=== PATIENT | female | born 1975 | race Two or more races ===

== ENCOUNTER 2016-11-07 06:13 | Inpatient (IN) | payer SELFPAY ==
[~2016-11-07] VITALS: Ht 154.9 cm; Wt 67.1 kg
[2016-11-07 08:30] VITALS: BP 120/63
[2016-11-07] MEDS ORDERED: LIDOCAINE 1% PF 30 ML VIAL. INJ PRN (09:15)
[2016-11-07] MEDS ORDERED: fentaNYL PF VIAL 100 MCG/2 ML VIAL IV PRN (09:15)
[2016-11-07] MEDS ORDERED: 0.9 % SODIUM CHLORIDE 10 ML DISP.SYRIN. IV PRN ×2 (09:15→16:00)
[2016-11-07] MEDS ORDERED: OXYTOCIN 30 UNIT/500 ML PREMIX 500 ML IV PRN ×4 (09:15→16:00)
[2016-11-07] MEDS ORDERED: CITRIC ACID/SODIUM CITRATE 30 ML SOLUTION. PO PRN (09:15)
[2016-11-07] MEDS ORDERED: BUTORPHANOL 2 MG/ML VIAL. IV PRN ×2 (09:15)
[2016-11-07] MEDS ORDERED: TERBUTALINE 1 MG/ML VIAL. SQ PRN (09:15)
[2016-11-07] MEDS ORDERED: MAG HYDROX/ALUMINUM HYD/SIMETH 30 ML ORAL.SUSP PO PRN ×2 (09:15→16:00)
[2016-11-07 09:37] LABS: HEMATOCRIT 36.2 % (36.0-47.0); HEMOGLOBIN 12.4 g/dL (12.0-15.5); RED BLOOD COUNT 3.59 x10^6/uL (3.50-5.40); RED CELL DISTRIBUTION WIDTH 13.3 % (11.5-14.5); WHITE BLOOD COUNT 5.7 x10^3/uL (4.0-11.0)
[2016-11-07] MEDS ORDERED: LIDOCAINE 2% PF Vial for OR 5 ML VIAL. ONE (10:20)
[2016-11-07] MEDS: IV RINGERS,LACTATED 1000ML 1,000 ML IV SCH ×2 (10:31→11:20)
[2016-11-07] MEDS ORDERED: L&D EPIDURAL CASSETTE 100 ML PUMP.RESVR. EP ONE (11:02)
[2016-11-07] MEDS ORDERED: L&D EPIDURAL CASSETTE 100 ML EP ONE (11:02)
[2016-11-07 12:55] LABS: BILIRUBIN,URINE NEGATIVE (NEG); GLUCOSE,URINE NEGATIVE (NEG); NITRITE,URINE NEGATIVE (NEG); PH,URINE 6.5; PROTEIN,URINE NEGATIVE (NEG-TRACE); UROBILINOGEN,URINE 0.2 mg/dL (0.2 mg/dL)
[2016-11-07 13:29] LABS: BACTERIA,URINE 0 /HPF (0-FEW); RBC,URINE OCC /HPF (0-2); SQUAMOUS EPITHELIAL CELL,UR FEW /LPF; WBC,URINE 0 /HPF (0-4)
[2016-11-07] MEDS ORDERED: BENZOCAINE 20% TOPICAL AEROSOL SPRAY 57GM CAN. TP PRN (16:00)
[2016-11-07] MEDS ORDERED: SIMETHICONE 80 MG TAB.CHEW PO PRN (16:00)
[2016-11-07] MEDS ORDERED: ZOLPIDEM 5 MG TABLET. PO PRN (16:00)
[2016-11-07] MEDS ORDERED: PHENYLEPH/MINERAL OIL/PETROLAT RECTAL OINTMENT 28GM TUBE. RC PRN (16:00)
[2016-11-07] MEDS ORDERED: ACETAMINOPHEN 325 MG TABLET. PO PRN (16:00)
[2016-11-07] MEDS ORDERED: diphenhydrAMINE HCL 25 MG CAPSULE PO PRN (16:00)
[2016-11-07] MEDS ORDERED: HYDROcodone/APAP 5/325MG 1 TAB TABLET PO PRN (16:00)
[2016-11-07] MEDS ORDERED: MAGNESIUM HYDROXIDE 2,400 MG/30 ML ORAL.SUSP. PO PRN (16:00)
[2016-11-07] MEDS ORDERED: HYDROCORTISONE 1% TOPICAL OINTMENT 30GM TUBE. TP PRN (16:00)
--- NOTE | 2016-11-07 16:01 | PDOC1 ---
OB - History Hx of Present Care: Good Care Ultrasounds: Normal mid trimester US Obstetrical Complications: None Medical Complications: None Past Family/Social History * Past Medical, Surgical, Family and Obstetric Histories reviewed from chart. Blood Type: A+ Rubella: Immune RPR/VDRL: Negative GBS Status: Negative HBsAG: Negative OB - Chief Complaint & HPI Date of Admission: Date of Admission: Nov 07, 2016 at 06:13 Chief Complaint/History : 3 Para: 2 EDC: Nov 11, 2016 Reason for admission: induction of labor Indication for induction: other Admission Nurse Assessment Rev: Yes Problems: OB - Admission Exam Physical Exam Vitals: VS - Last 72 Hours, by Label Date Time Temp Pulse Resp B/P (MAP) Pulse Ox O2 Delivery O2 Flow Rate FiO2 11/07/16 08:30 99.1 61 20 120/63 (82) 99.1 HEENT: Normal, Nasal Mucosa Normal, Oropharynx Normal, Moist Membranes, Fontanelles Normal Heart: Regular Rate Lungs: Clear, Equal Abdomen: Gravid Extremities: Normal Pulses, No tenderness or swelling Reflexes: Normal Cervical Dilatation: 3cm Effacement: 50% Station: -2 Membranes: Intact Amniotic Fluid: Clear Heart Rate: Normal Accelerations: Accelerations Present Contractions on Admission: >10 Minutes Apart Intensity: Mild Assessment/Plan Assessment/Plan TIUP -[facility] ACSVD Problems: NEO CARRINGTON MD Nov 07, 2016 16:01
--- NOTE | 2016-11-07 16:04 | PDOC ---
VAGINAL DELIVERY DATE DATE: 11/07/16 TIME: 16:02 : 3 Para: 2 EDC: Nov 11, 2016 VAGINAL DELIVERY: VTX VACCUM ASSISTED: No PLACENTA: Spontaneous 10/26/ SEX: Male WEIGHT 8/4 Nuchal Cord: No Amniotic Fluid: Clear PAIN: Epidural EPISIOTOMY: Yes EXTENSION: No EBL 400cc COMPLICATIONS none CONDITION stable Signs of Intrauterine Infectio: None Shoulder Dystocia: No DIAGNOSIS delivered Problems: NEO CARRINGTON MD Nov 07, 2016 16:04
[2016-11-07] MEDS ORDERED: FERROUS SULFATE 325 MG TABLET. PO SCH (17:00)
[2016-11-07 20:00] VITALS: BP 109/50
[2016-11-07 21:00] VITALS: BP 91/50
[2016-11-07] MEDS: IBUPROFEN 800 MG TABLET. PO SCH (21:51)
[2016-11-08 04:30] VITALS: BP 109/56
[2016-11-08] MEDS: IBUPROFEN 800 MG TABLET. PO SCH (04:39)
[2016-11-08 06:19] LABS: RPR REFLEX Non Reactive (Non Reactive)
[2016-11-08 11:27] VITALS: BP 104/48
--- NOTE | 2016-11-08 13:08 | PDOC ---
OB Progress Note Date of Service 11/08/16 Time of Evaluation 1305 Notes Pt. feeling well. Pain controlled. Breast feeding. Lochia minimal. Lab Laboratory Tests Test 11/07/16 06:45 11/07/16 08:50 11/08/16 04:20 Urine Collection Type Unknown Urine Color Yellow Urine Clarity Clear Urine pH 6.5 Urine Specific [place] 1.010 Urine Protein Negative mg/dL (NEG-TRACE) Urine Glucose (UA) Negative mg/dL (NEG) Urine Ketones (Stick) Negative mg/dL (NEG) Urine Blood Trace (NEG) Urine Nitrite Negative (NEG) Urine Bilirubin Negative (NEG) Urine Urobilinogen Dipstick 0.2 mg/dL (0.2 mg/dL) Urine Leukocyte Esterase Negative (NEG) Urine RBC Occ /HPF (0-2) Urine WBC 0 /HPF (0-4) Urine Squamous Epithelial Cells Few /LPF Urine Bacteria 0 /HPF (0-FEW) White Blood Count 5.7 x10^3/uL (4.0-11.0) Red Blood Count 3.59 x10^6/uL (3.50-5.40) Hemoglobin 12.4 g/dL (12.0-15.5) Hematocrit 36.2 % (36.0-47.0) 30.1 % (36.0-47.0) Mean Corpuscular Volume 101 fL (79-100) Mean Corpuscular Hemoglobin 35 pg (25-35) Mean Corpuscular Hemoglobin Concent 34 g/dL (31-37) Red Cell Distribution Width 13.3 % (11.5-14.5) Platelet Count 162 x10^3/uL (140-400) RPR Titer Additional Testing Non reactive (Non Reactive) Laboratory Tests Test 11/08/16 04:20 Hematocrit 30.1 % (36.0-47.0) Medications Current Medications Sodium Chloride (Normal Saline Flush) 3 ml QSHIFT PRN IV AFTER MEDS AND BLOOD DRAWS Last administered on 11/07/16 16:44; Start 11/07/16 at 09:15 Ringer's Solution 1,000 ml @ 125 mls/hr Q8H IV Last administered on 11/07/16 11:20; Start 11/07/16 at 09:07 Butorphanol Tartrate (Stadol) 1 mg PRN Q1HR PRN IV mild to moderate labor pain ; Start 11/07/16 at 09:15 Butorphanol Tartrate (Stadol) 2 mg PRN Q1HR PRN IV Severe labor pain; Start at 09:15 Fentanyl Citrate (Fentanyl 2ml Vial) 100 mcg PRN Q30MIN PRN IV Severe pain; Start 11/07/16 at 09:15 Al Hydroxide/Mg Hydroxide (Mylanta Plus Xs) 30 ml PRN Q4HRS PRN PO HEARTBURN / GAS; Start 11/07/16 at 09:15 Citric Acid/ Sodium Citrate (Bicitra) 30 ml 1X PRN PRN PO DYSPEPSIA; Start at 09:15; Stop 11/08/16 at 09:14; Status DC Terbutaline Sulfate (Brethine) 0.25 mg 1X PRN PRN SQ SEE COMMENTS; Start at 09:15; Stop 11/08/16 at 09:14; Status DC Lidocaine HCl 30 ml 1X PRN PRN INJ SEE COMMENTS; Start 11/07/16 at 09:15; Stop 11/09/16 at 09:14 Oxytocin/Sodium Chloride 500 ml @ 0 mls/hr CONT PRN IV SEE I/O RECORD Last administered on 11/07/16t 10:32; Start 11/07/16 at 09:15 Oxytocin/Sodium Chloride 500 ml @ 0 mls/hr CONT PRN IV SEE I/O RECORD; Start at 09:15 Oxytocin/Sodium Chloride 500 ml @ 0 mls/hr CONT PRN PRN IV Post delivery bleeding; Start 11/07/16 at 09:15 Ibuprofen (Motrin) 800 mg PRN Q6HRS PRN PO PAIN; Start 11/07/16 at 09:15 Lidocaine HCl (Lidocaine Pf 2% Vial) 5 ml STK-MED ONCE .ROUTE ; Start 11/07/16 at 10:20; Stop 11/07/16 at 10:21; Status DC Ropivacaine/ Fentanyl/NS 100 ml @ As Directed STK-MED ONCE EP ; Start 11/07/16 at 11:02; Stop 11/07/16 at 11:03; Status DC Sodium Chloride (Normal Saline Flush) 10 ml QSHIFT PRN IV AFTER MEDS AND BLOOD DRAWS; Start 11/07/16 at 16:00 Oxytocin/Sodium Chloride 500 ml @ 62.5 mls/hr CONT PRN IV SEE I/O RECORD; Start 11/07/16 at 16:00; Stop 11/07/16 at 23:59; Status DC Acetaminophen (Tylenol) 650 mg PRN Q6HRS PRN PO MILD PAIN / TEMP; Start at 16:00 Ibuprofen (Motrin) 800 mg Q8HRS PO Last administered on 11/08/16t 04:39; Start 11/07/16 at 22:00 Magnesium Hydroxide (Milk Of Magnesia) 2,400 mg PRN DAILY PRN PO CONSTIPATION; Start 11/07/16 at 16:00 Al Hydroxide/Mg Hydroxide (Mylanta Plus Xs) 30 ml PRN Q4HRS PRN PO HEARTBURN / GAS; Start 11/07/16 at 16:00 Simethicone (Gas-X) 80 mg PRN AFTMEALHC PRN PO GAS / BLOATING; Start 11/07/16 at 16:00 Diphenhydramine HCl (Benadryl) 25 mg PRN Q6HRS PRN PO ITCHING; Start 11/07/16 at 16:00 Benzocaine (Americaine) 1 spray PRN QID PRN TP TOPICAL PAIN; Start 11/07/16 at 16:00 Phenyleph/Shark Oil/Min Oil/Petrol (Preparation H) 1 melva PRN QID PRN RC RECTAL PAIN; Start 11/07/16 at 16:00 Hydrocortisone (Cortaid) 1 melva PRN QID PRN TP RECTAL PAIN; Start 11/07/16 at 16 :00 Ferrous Sulfate (Feosol) 325 mg BIDWMEALS PO ; Start 11/07/16 at 17:00 Zolpidem Tartrate (Ambien) 5 mg PRN QHS PRN PO INSOMNIA, MAY REPEAT X1; Start 11/07/16 at 16:00 Info (Do NOT chart on this placeholder) 1 ea 1X PRN PRN MC SEE COMMENTS; Start 11/07/16 at 16:00 Acetaminophen/ Hydrocodone Bitart (Lortab 5/325) 1 tab PRN Q4HRS PRN PO PAIN; Start 11/07/16 at 16:00 Exam Abd: soft, non tender, fundus firm Assessment PPD#1 s/p Plan of Care: Continue current Tx, Mgmt PEGHEE,HOLDEN G Jr MD Nov 08, 2016 13:08
[2016-11-08] MEDS: IBUPROFEN 800 MG TABLET. PO PRN (17:03)
[2016-11-08 17:19] VITALS: BP 106/63
[2016-11-08 20:15] VITALS: BP 100/43
[2016-11-09] MEDS: IBUPROFEN 800 MG TABLET. PO PRN (00:14)
[2016-11-09 03:45] VITALS: BP 118/77
[2016-11-09 04:00] VITALS: BP 97/46
[2016-11-09] MEDS: IBUPROFEN 800 MG TABLET. PO SCH ×2 (06:00→12:58)
[2016-11-09 08:00] VITALS: BP 101/60
[2016-11-09] MEDS ORDERED: IBUPROFEN 800 MG TABLET. PO ONE (12:56)
[2016-11-09] MEDS ORDERED: oxyCODONE/APAP 5/325 1 TAB TABLET ONE (12:56)
--- NOTE | 2016-11-09 13:33 | PDOC ---
OB Progress Note Date of Service 11/09/16 Time of Evaluation 1330 Notes Pt. feeling well. No complaints. Lab Laboratory Tests Test 11/08/16 04:20 Hematocrit 30.1 % (36.0-47.0) Medications Current Medications Sodium Chloride (Normal Saline Flush) 3 ml QSHIFT PRN IV AFTER MEDS AND BLOOD DRAWS Last administered on 11/07/16 16:44; Start 11/07/16 at 09:15; Stop at 14:04; Status DC Ringer's Solution 1,000 ml @ 125 mls/hr Q8H IV Last administered on 11/07/16 11:20; Start 11/07/16 at 09:07; Stop 11/08/16 at 14:04; Status DC Butorphanol Tartrate (Stadol) 1 mg PRN Q1HR PRN IV mild to moderate labor pain ; Start 11/07/16 at 09:15; Stop 11/08/16 at 14:04; Status DC Butorphanol Tartrate (Stadol) 2 mg PRN Q1HR PRN IV Severe labor pain; Start at 09:15; Stop 11/08/16 at 14:04; Status DC Fentanyl Citrate (Fentanyl 2ml Vial) 100 mcg PRN Q30MIN PRN IV Severe pain; Start 11/07/16 at 09:15; Stop 11/08/16 at 14:04; Status DC Al Hydroxide/Mg Hydroxide (Mylanta Plus Xs) 30 ml PRN Q4HRS PRN PO HEARTBURN / GAS; Start 11/07/16 at 09:15 Citric Acid/ Sodium Citrate (Bicitra) 30 ml 1X PRN PRN PO DYSPEPSIA; Start at 09:15; Stop 11/08/16 at 09:14; Status DC Terbutaline Sulfate (Brethine) 0.25 mg 1X PRN PRN SQ SEE COMMENTS; Start at 09:15; Stop 11/08/16 at 09:14; Status DC Lidocaine HCl 30 ml 1X PRN PRN INJ SEE COMMENTS; Start 11/07/16 at 09:15; Stop 11/08/16 at 14:04; Status DC Oxytocin/Sodium Chloride 500 ml @ 0 mls/hr CONT PRN IV SEE I/O RECORD Last administered on 11/07/16 10:32; Start 11/07/16 at 09:15; Stop 11/08/16 at 14:04 ; Status DC Oxytocin/Sodium Chloride 500 ml @ 0 mls/hr CONT PRN IV SEE I/O RECORD; Start at 09:15; Stop 11/08/16 at 14:04; Status DC Oxytocin/Sodium Chloride 500 ml @ 0 mls/hr CONT PRN PRN IV Post delivery bleeding; Start 11/07/16 at 09:15; Stop 11/08/16 at 14:04; Status DC Ibuprofen (Motrin) 800 mg PRN Q6HRS PRN PO PAIN Last administered on 11/09/16 00:14; Start 11/07/16 at 09:15 Lidocaine HCl (Lidocaine Pf 2% Vial) 5 ml STK-MED ONCE .ROUTE ; Start 11/07/16 at 10:20; Stop 11/07/16 at 10:21; Status DC Ropivacaine/ Fentanyl/NS 100 ml @ As Directed STK-MED ONCE EP ; Start 11/07/16 at 11:02; Stop 11/07/16 at 11:03; Status DC Sodium Chloride (Normal Saline Flush) 10 ml QSHIFT PRN IV AFTER MEDS AND BLOOD DRAWS; Start 11/07/16 at 16:00; Stop 11/08/16 at 14:04; Status DC Oxytocin/Sodium Chloride 500 ml @ 62.5 mls/hr CONT PRN IV SEE I/O RECORD; Start 11/07/16 at 16:00; Stop 11/07/16 at 23:59; Status DC Acetaminophen (Tylenol) 650 mg PRN Q6HRS PRN PO MILD PAIN / TEMP; Start at 16:00 Ibuprofen (Motrin) 800 mg Q8HRS PO Last administered on 11/09/16t 12:58; Start 11/07/16 at 22:00 Magnesium Hydroxide (Milk Of Magnesia) 2,400 mg PRN DAILY PRN PO CONSTIPATION; Start 11/07/16 at 16:00 Al Hydroxide/Mg Hydroxide (Mylanta Plus Xs) 30 ml PRN Q4HRS PRN PO HEARTBURN / GAS; Start 11/07/16 at 16:00 Simethicone (Gas-X) 80 mg PRN AFTMEALHC PRN PO GAS / BLOATING; Start 11/07/16 at 16:00 Diphenhydramine HCl (Benadryl) 25 mg PRN Q6HRS PRN PO ITCHING; Start 11/07/16 at 16:00 Benzocaine (Americaine) 1 spray PRN QID PRN TP TOPICAL PAIN; Start 11/07/16 at 16:00 Phenyleph/Shark Oil/Min Oil/Petrol (Preparation H) 1 melva PRN QID PRN RC RECTAL PAIN; Start 11/07/16 at 16:00 Hydrocortisone (Cortaid) 1 melva PRN QID PRN TP RECTAL PAIN; Start 11/07/16 at 16 :00 Ferrous Sulfate (Feosol) 325 mg BIDWMEALS PO ; Start 11/07/16 at 17:00; Stop at 14:04; Status DC Zolpidem Tartrate (Ambien) 5 mg PRN QHS PRN PO INSOMNIA, MAY REPEAT X1; Start 11/07/16 at 16:00 Info (Do NOT chart on this placeholder) 1 ea 1X PRN PRN MC SEE COMMENTS; Start 11/07/16 at 16:00; Stop 11/08/16 at 14:04; Status DC Acetaminophen/ Hydrocodone Bitart (Lortab 5/325) 1 tab PRN Q4HRS PRN PO PAIN; Start 11/07/16 at 16:00 Ropivacaine/ Fentanyl/NS (Ngtuadpx-Lzreo-VS 3 Mcg-0.1%) 100 ml STK-MED ONCE EP ; Start 11/07/16 at 11:02; Stop 11/09/16 at 11:50; Status DC Oxycodone/ Acetaminophen (Percocet 5/325) 1 tab STK-MED ONCE .ROUTE ; Start at 12:56; Stop 11/09/16 at 12:57; Status DC Ibuprofen (Motrin) 800 mg STK-MED ONCE PO ; Start 11/09/16 at 12:56; Stop at 12:57; Status DC Exam Abd: soft, non tender, fundus firm Assessment PPD# 2 s/p Plan of Care: See new orders (D/c home.) HOLDEN GARCIA Jr, MD Nov 09, 2016 13:33
[2016-11-09] MEDS ORDERED: IBUP-1060 PO (13:34)
--- NOTE | 2016-11-09 13:34 | DISCH ---
DISCHARGE INSTRUCTIONS Condition on Discharge Condition on Discharge: Stable Activity After Discharge Activity Instructions for Disc: Activity as tolerated Lifting Instructions after Dis: No heavy lifting Driving Instructions after Dis: Do not drive today Diet after Discharge Diet after Discharge: Regular Contacting the [facility] after DC Call your doctor for: Concerns you may have Follow-Up Follow up with: Emilia in 6 weeks. HOLDEN GARCIA Jr, MD Nov 09, 2016 13:34
[2016-11-09 14:10] VITALS: BP 103/56
== END 2016-11-09 15:00 | disposition home or self-care (01) | DRG 775 ==
LOC: OBSVTOIN 06:13 → 3 SO LND 06:13 → 3 NORTH 20:00
PROVIDERS: ADMIT Specialist; ATTEND Specialist
PROC: 10E0XZZ Delivery of Products of Conception, External Approach (ICD-10-PCS; principal; 2016-11-07)
PROC: 0W8NXZZ Division of Female Perineum, External Approach (ICD-10-PCS; 2016-11-07)
PROC: 3E0S3BZ Introduction of Anesthetic Agent into Epidural Space, Percutaneous Approach (ICD-10-PCS; 2016-11-07)
PROC: 00HU33Z Insertion of Infusion Device into Spinal Canal, Percutaneous Approach (ICD-10-PCS; 2016-11-07)
DX: O34.219 Maternal care for unspecified type scar from previous cesarean delivery (principal); Z37.0 Single live birth; Z3A.00 Weeks of gestation of pregnancy not specified
CPT/HCPCS: 36415; 81001; 85014; 85027; 86593; 86850; 86900; 86901; G0378; J2590; J7120